=== PATIENT | male | born 1955 | race Hispanic/Latino ===

== ENCOUNTER 2019-12-23 22:25 | Emergency (ER) | payer MEDICARE ==
[2019-12-23 22:43] VITALS: BP 141/86
[2019-12-24] MEDS ORDERED: traMADol 50 MG TAB PO ONE (03:10)
[2019-12-24] MEDS ORDERED: traMADol 50 MG TAB ONE (03:12)
--- NOTE | 2019-12-24 04:14 | Emergency Department Report ---
ED Lower Extremity HPI - General Chief Complaint: Animal Bite Stated Complaint: LOWER BACK/RT LEG PAIN Time Seen by Provider: 12/24/19 02:47 Source: patient, EMS Mode of arrival: Ambulatory Limitations: No Limitations - History of Present Illness Initial Comments: This is a 64-year-old male who presents to the emergency room with pain to right lateral thigh for 2 to 3 weeks. Patient states he initially thought he got bitten by a snake. Patient states symptoms improved but worsened over the past few days. He is seeing pain management Dr. Jacobo if they feel. Patient states he has a follow-up appointment with him on January 07 and wanted to tough it out but could not handle the pain. He denies new injury or recent fall. He denies numbness or tingling, swelling, bruising, or weakness. MD Complaint: leg injury (Right leg pain) Onset/Timin -: week(s) Injury: Leg: Right Place: home Severity: moderate Severity scale (0 -10): 4 Improves With: nothing Worsens With: movement - Related Data Allergies Allergy/AdvReac Type Severity Reaction Status Date / Time No Known Allergies Allergy Verified 12/23/19 22:45 ED Review of Systems ROS: Stated complaint: LOWER BACK/RT LEG PAIN Other details as noted in HPI Constitutional: denies: chills, fever Respiratory: denies: cough, shortness of breath, wheezing Cardiovascular: denies: chest pain, palpitations Gastrointestinal: denies: abdominal pain, nausea, diarrhea Musculoskeletal: arthralgia (Right lateral thigh pain). denies: back pain, joint swelling Skin: denies: rash, lesions Neurological: denies: headache, weakness, paresthesias Psychiatric: denies: anxiety, depression ED Past Medical Hx - Past Medical History Previous Medical History?: No - Surgical History Past Surgical History?: Yes Additional Surgical History: oral - Social History Smoking Status: Never Smoker Substance Use Type: None ED Physical Exam - General Limitations: No Limitations General appearance: alert, in no apparent distress, obese - Respiratory Respiratory exam: Present: normal lung sounds bilaterally. Absent: respiratory distress - Cardiovascular Cardiovascular Exam: Present: regular rate, normal rhythm. Absent: systolic murmur, diastolic murmur, rubs, gallop - GI/Abdominal GI/Abdominal exam: Present: soft, normal bowel sounds. Absent: distended, tenderness, guarding, rebound, rigid - Extremities Exam Extremities exam: Present: normal inspection - Expanded Lower Extremity Exam Right Hip exam: Present: normal inspection, full ROM Upper Leg exam: Present: normal inspection, full ROM Knee exam: Present: normal inspection, full ROM Lower Leg exam: Present: normal inspection, full ROM Ankle exam: Present: normal inspection, full ROM Foot/Toe exam: Present: normal inspection, full ROM Neuro vascular tendon exam: Present: no vascular compromise Gait: Positive: observed and normal - Neurological Exam Neurological exam: Present: alert, oriented X3, normal gait - Psychiatric Psychiatric exam: Present: normal affect, normal mood - Skin Skin exam: Present: warm, dry, intact, normal color. Absent: rash ED Course Vital Signs 12/23/19 22:42 Temperature 98.3 F Pulse Rate 71 Respiratory 16 Rate Blood Pressure 141/86 O2 Sat by Pulse 95 Oximetry ED Lower Extremity MDM - Medical Decision Making This is a 64-year-old male who presents to the emergency room with right lateral thigh pain from a possible snakebite. Vitals are stable and patient in no acute distress. Patient is full range of motion right lower extremity. There are no signs of bite washburn or infection to right lateral thigh. Patient ambulating in the ER with no aid or assistance. Gait is steady. Patient is followed by orthopedics and have a follow-up appointment with Dr. Jacobo on January 07. Start taking naproxen or ibuprofen for pain. Follow-up with orthopedics with continued care. Patient discharged home stable and given return precautions. Critical care attestation.: If time is entered above; I have spent that time in minutes in the direct care of this critically ill patient, excluding procedure time. ED Disposition Clinical Impression: Pain in right thigh Disposition: -01 TO HOME OR SELFCARE Is pt being admited?: No Condition: Stable Instructions: Arthralgia (ED) Additional Instructions: Rest Use ice or heat on affected area for 20 minutes and off for 2 hours. Take pain medication as needed for pain. Follow up with Primary Care Provider in 2-3 days. Referrals: [facility] [Outside] - 3-5 Days [facility] [Outside] - 3-5 Days [facility] [Outside] - 3-5 Days [facility] [Provider Group] - 3-5 Days Time of Disposition: 04:16
== END 2019-12-24 04:23 | disposition home or self-care (01) ==
LOC: ED 22:25
DX: M79.651 Pain in right thigh (principal); Z98.890 Other specified postprocedural states